=== PATIENT | female | born 1995 | race African-American/Black ===

== ENCOUNTER 2019-10-25 23:19 | Emergency (ER) | payer MEDICARE, MEDICAID ==
[~2019-10-25] VITALS: Ht 165.1 cm; Wt 52.5 kg
[2019-10-26 04:26] VITALS: BP 122/72
== END 2019-10-26 04:27 | disposition home or self-care (01) ==
LOC: ER 23:19
DX: J40 Bronchitis, not specified as acute or chronic (principal); J06.9 Acute upper respiratory infection, unspecified; Z94.0 Kidney transplant status
CPT/HCPCS: 71045; 99283

== ENCOUNTER 2025-04-19 13:35 | Emergency (ER) | payer MEDICAID, MEDICARE ==
[~2025-04-19] VITALS: Ht 165.1 cm; Wt 52.0 kg
[2025-04-19 13:38] VITALS: O2SAT 99
[2025-04-19 15:48] LABS: BASOPHILS % 0.4 % (0.0-2.0); EOSINOPHILS % 0.1 % (0.0-5.0); HEMATOCRIT. 43.2 % (36.0-48.0); HEMOGLOBIN. 13.7 g/dL (12.0-16.0); LYMPHOCYTES % 19.2 % (20.0-50.0); MEAN PLATELET VOLUME 10.5 fl (7.4-10.4); MONOCYTES % 4.8 % (2.0-8.0); NEUTROPHILS % 75.5 % (40.0-76.0); PLATELET 155 x1000/uL (130-400); RED BLOOD CELL COUNT 5.15 mill/uL (4.2-5.4); RED CELL DISTRIBUTION WIDTH 15.2 % (11.6-14.6)
[2025-04-19] MEDS: SODIUM CHLORIDE 0.9% 1,000 ML IV ONE (15:53)
[2025-04-19] MEDS: DIPHENHYDRAMINE 50MG/ML VIAL IV ONE (16:01)
[2025-04-19 16:04] LABS: CREATININE 1.4 mg/dL (0.6-1.0); TROPONIN I HIGH SENSITIVITY 4 ng/L (3.0-34); UREA NITROGEN BLOOD 19 mg/dL (9-23)
[2025-04-19 16:06] LABS: ASPARTATE AMINOTRANSFERASE 19 IU/L (<34)
[2025-04-19] MEDS: KETOROLAC 15MG/ML VIAL IV ONE (16:06)
[2025-04-19 16:07] LABS: BILIRUBIN DIRECT 0.1 mg/dL (<=3.0); BILIRUBIN TOTAL 0.5 mg/dL (0.1-1.0); PROTEIN TOTAL 8.0 g/dL (6.0-8.3)
[2025-04-19] MEDS: DEXAMETHASONE 10 MG/ML VIAL IV ONE (16:08)
[2025-04-19] MEDS: SUMATRIPTAN SUCCINATE 6MG/0.5ML VIAL SUBCUT ONE (16:08)
[2025-04-19 16:22] LABS: INR 1.0
[2025-04-19] MEDS: PROCHLORPERAZINE 10MG/2ML VIAL IV ONE (16:32)
[2025-04-19] MEDS ORDERED: SUMA11AE2 BOTHNSTRLS (17:23)
[2025-04-19] MEDS ORDERED: IBUP-1455 MT (17:23)
[2025-04-19 17:31] VITALS: BP 104/62; PULSE 68; RESP 18; TEMP 37.1; O2SAT 98
== END 2025-04-19 17:50 | disposition home or self-care (01) ==
LOC: ER 13:35
DX: G43.909 Migraine, unspecified, not intractable, without status migrainosus (principal); R07.89 Other chest pain; R06.02 Shortness of breath; Z94.0 Kidney transplant status; Z79.899 Other long term (current) drug therapy
CPT/HCPCS: 99285; 96374; 96375; 71045; 96361; 80076; 80048; 81025; 83690; 85025; 85610; 84484; 36415; 93005; J1885; J1100; J1200; J0780; J3030; J7030